=== PATIENT | female | born 2005 | race Caucasian/White ===

== ENCOUNTER 2024-09-09 15:22 | Outpatient (CLI) | payer BC, SELFPAY | END 2024-09-09 23:59 | disposition home or self-care (01) | LOC: RT 15:24 | PROVIDERS: PCP Specialist; Visit Provider Physician Assistant | DX: I49.1 Atrial premature depolarization (principal); I49.3 Ventricular premature depolarization; I47.10 Supraventricular tachycardia, unspecified; R42 Dizziness and giddiness | CPT/HCPCS: 93270 ==

== ENCOUNTER 2024-10-01 07:26 | Outpatient (CLI) | payer BC, SELFPAY ==
--- NOTE | 2024-10-01 08:00 | CA_ITS ---
APPROVED REPORT EXAM: Comprehensive 2D, Doppler, and color-flow Echocardiogram Brake Lining Maker: Cheryl Oscar RDCS Ht: 5 ft 9 in Wt: 247lbs BSA: 2.26 BP: 137/74 mmHg Indications: Syncope M-Mode Dimensions RVDd 1.33 cm (0.9-2.6) LA Diam 3.20 cm (1.9-4.0) LVDd 5.38 cm (3.5-5.7) LVDs 3.86 cm (3.5-5.7) IVSd 0.72 cm (0.6-1.1) PWd 0.57 cm (0.6-1.1) EF (Teich) 54.10% FS 28.30% EDV (Teich) 140.10 mL TAPSE 2.73 (<1.7) ESV (Teich) 64.30 mL LV Diastology E Decel Time 220 (160-240 msec) E/A Ratio 2.2 Mitral Valve MV E Max Juan. 107.0 (40-130 cm/s) MV A Velocity 48.0 (40-130 cm/s) E/A Ratio 2.21 MV Mean Gr. 1.70 (<2mmHg) MV PHT 64.0 ms Left Ventricle The left ventricle is normal size. The left ventricular systolic function is normal. The left ventricular ejection fraction is within the normal range. There is normal left ventricular wall thickness. There is normal LV segmental wall motion. The left ventricular diastolic function is normal. LVEF is 55%. Right Ventricle The right ventricle is mildly dilated. The right ventricular systolic function is normal. Atria The left atrium size is normal. The right atrium size is normal. There is indeterminate color Doppler evidence of interatrial shunt. Aortic Valve The aortic valve opens well. There is no aortic valvular stenosis. No aortic regurgitation is present. Mitral Valve The mitral valve is normal in structure. No evidence of mitral valve stenosis. There is no mitral valve regurgitation noted. Tricuspid Valve Tricuspid valve is grossly normal in structure and function. Mild tricuspid regurgitation. RVSP is 20-25 mmHg. Pulmonic Valve The pulmonary valve is normal in structure. Trace pulmonic regurgitation. Great Vessels The aortic root is normal in size. IVC is normal in size and collapses >50% with inspiration. Pericardium There is no pericardial effusion. Other Information Study Quality: Adequate Conclusion Normal biventricular systolic function. Mild RV dilation. There is indeterminate color Doppler evidence of interatrial shunt. In the setting of mild RV dilation, further evaluation with limited TTE + agitated saline administration (bubble study) is suggested. Also, in the setting of syncope and mild RV dilation, outpatient cardiac MRI ([facility] protocol) may be suggested, if clinically feasible and appropriate. Electronically signed by : Ely Macias MD 10/06/2024 23:44:08
== END 2024-10-01 23:59 | disposition home or self-care (01) ==
LOC: RT 07:27
PROVIDERS: PCP Specialist; Visit Provider Physician Assistant
DX: I51.7 Cardiomegaly (principal); R55 Syncope and collapse
CPT/HCPCS: 93306

== ENCOUNTER 2024-11-05 08:19 | Outpatient (CLI) | payer BC, SELFPAY ==
--- NOTE | 2024-11-05 08:21 | CA_ITS ---
APPROVED REPORT EXAM: Limited 2D Echocardiogram Education Coordinator: Mehnaz Bansal, RCS, RVS Ht: 5 ft 9 in Wt: 245lbs BSA: 2.25 BP: 124/71 mmHg Indications: IAS fallout, RV dilation Echo Enhancing Agent Indication: Rule Out Septal Defect Agent(s) / Amount(s) Used: Agitated Saline 20 cc Comments: Negative for right to left shunt Other Information Study Quality: Fair Conclusion This is a limited TTE to evaluate for interatrial shunt. Limited windows are obtained. Agitated saline is administered. The left ventricle is normal in size and systolic function. The right ventricle is normal in size and systolic function. No color Doppler evidence of interatrial shunt. Agitated saline administration demonstrates no evidence of interatrial shunt. Electronically signed by : Ely Macias MD 11/05/2024 17:31:53
--- OUTSIDE RECORDS SUMMARY | 2024-11-05 08:23 | XMS_ITS | Clinical Summary ---
Author Organization [facility] Address [address] [place] [address] Phone Care Team Providers Care Telehealth Case Manager Name Role Phone Gilmer Phillips MD Primary Care Provider [phone] Allergies No known active allergies Medications ibuprofen (ADVIL;MOTRIN) 200 mg Oral Tablet Take by mouth every 8 hours as needed for Pain. Active drospirenone-et hinyl estradioL (WENDY) 3-0.03 mg Oral Tablet TAKE ONE (1) TABLET EVERY DAY BY ORAL ROUTE. 2 Active topiramate (TOPAMAX) 25 mg Oral Tablet TAKE ONE (1) BY MOUTH EVERY DAY FOR A WEEK THEN ONE (1) BY MOUTH TWICE DAILY FOR ONE WEEK THEN ONE (1) BY MOUTH IN IN THE MORNING AND TWO (2) BY MOUTH IN IN THE EVENING FOR ONE WEEK THEN TWO (2) BY MOUTH TWICE DAILY THEREAFTER 2 Active ibuprofen (ADVIL;MOTRIN) 800 mg Oral Tablet 2 Active Social History Tobacco Use Types Packs/Day Years Used Date Smoking Tobacco: Never Smokeless Tobacco: Never Alcohol Use Standard Drinks/Week Comments Never 0 (1 standard drink = 0.6 oz pur e alcohol) Comments Unknown Sex and Gender Information Value Date Recorded Sex Assigned at Not on file Legal Sex Female 5:05 AM EDT Gender Identity Not on file Sexual Orientation Not on file Obstetrics History Last Filed Vital Signs Vital Sign Reading Time Taken Comments Blood Pressure - - Pulse - - Temperature - - Respiratory Rate - - Oxygen Saturation - - Inhaled Oxygen Concentration - - Weight 86.2 kg (190 lb) 06/12/2021 10:49 AM EST Height 175.3 cm (5' 9 ) 06/12/2021 10:49 AM EST Body Mass Index 28.06 06/12/2021 10:49 AM EST Plan of Treatment Health Maintenance Due Date Last Done Comments Annual Wellness Exam 2007 Meningococcal B Vaccine (2 o f 2 - Bexsero SCDM 2-dose series) 10/02/2020 04/03/2020 COVID-19 Vaccine (2023-2 5 season) 2023 01/12/2021, 12/22/2020 Influenza Vaccine (#1) 2024 DTaP/TDaP/Td (7 - Td or Tdap) 11/15/2025, 04/26/2008, 07/26/2005, Additional history exists Hepatitis B Vaccine Completed 2004, 2004, 2004 Pneumococcal Vaccine 0-49 Completed 2005, 2004, 2004, Additional history exists HPV Completed 04/03/2020, 05/29/2017 Insurance [employer] PPO Member Subscriber Plan / Payer (Ef fective 2019-Present) Name:Holley Martinez Relation to Subscriber:Child Name:CASPER MARTINEZ Date of :1982 (Home) Address: [address] [place] [id number] Payer ID:[id number] (NAIC) Group ID:Not on file Type:Not on file Address: [id number] Care Teams Telehealth Case Manager Relationship Specialty Start Date End Date Gilmer Phillips MD [address] [place] [address] [id number] PCP - General Specialist 05/26/12
== END 2024-11-05 23:59 | disposition home or self-care (01) ==
LOC: RT 08:20
PROVIDERS: PCP Specialist; Visit Provider Internal Medicine
DX: I49.3 Ventricular premature depolarization (principal); I49.1 Atrial premature depolarization; I51.7 Cardiomegaly; R61 Generalized hyperhidrosis; R55 Syncope and collapse; Z82.49 Family history of ischemic heart disease and other diseases of the circulatory system
CPT/HCPCS: 93308